=== PATIENT | male | born 1955 | race Caucasian/White ===

== ENCOUNTER → 2016-08-17 | Outpatient (CLI) | payer BC ==
--- NOTE | 2016-08-17 15:33 | RADRPT ---
PROCEDURE: XR left knee. CLINICAL INDICATION: Knee pain TECHNIQUE: AP weightbearing, PA weightbearing, lateral weightbearing and sunrise views are availab le for review. COMPARISON: None available FINDINGS: ACL repair. Bipartite patella. There is moderate osteoarthrosis involving the medial tibial femoral compartment and lateral tibial femoral compartment and mild osteoarthrosis involving the patellofemoral compartment. This is associ ated with joint space narrowing, subchondral sclerosis and osteophytosis. There is otherwise normal mineralization, architecture and alignment. No fractures are identified. No osseous lesions are identified. The soft tissues are unremarkable. IMPRESSION: Moderate osteoarthrosis involving the medial tibial femoral compartment and lateral tibial femoral c ompartment and mild osteoarthrosis involving the patellofemoral compartment. RPTAT: [facility] .Des Rosario MD, Date Time Electronically viewed and signed by .Des Rosario MD, on 08/17/2016 15:33 .B/
== END | disposition home or self-care (01) ==
LOC: HKI 15:48
PROVIDERS: ATTEND Orthopaedic Surgery
DX: M25.562 Pain in left knee (principal); M17.12 Unilateral primary osteoarthritis, left knee
CPT/HCPCS: 73564; G0463